=== PATIENT | female | born 1965 | race Caucasian/White ===

== ENCOUNTER → 2018-04-09 | Day surgery (SDC) | payer BC ==
[~2018-04-09] MED LIST: ALLOPURINOL300 MG PO; ALTACE5 MG; CLINDAMYCIN HC150 MG PO; FENTANYL CITRATE/PF 100MCG/2 ML INJ ONE; GLUCAGON FOR INJ 1 MG VIAL ONE; HYDROCHLOROTHIA25 MG; HYOSCYAMINE SULFATE 0.5 MG/ML INJ ONE; LANTUS 3ML100 UNITS/; LIDOCAINE HCL 2% LOCAL INJ 5 ML SDV VIAL INJ ONE; MOBIC15 MG; PHOSPHASAL TAB1 EACH; PROPOFOL IV EMULSION 10 MG/ML 50 ML VIAL ONE; SODIUM BICARBO650 MG PO; TRADJENTA5 MG; VICTOZA 2-0.6 MG/0.1; ZOCOR10 MG
[2018-04-09 09:25] VITALS: BP 109/73
--- NOTE | 2018-04-09 10:48 | Operative Report ---
DATE OF PROCEDURE: April 09, 2018 PROCEDURES PERFORMED: 1. Esophagogastroduodenoscopy with biopsies. 2. Colonoscopy with polypectomy. REFERRING PHYSICIAN: Dr. Harley Haines INDICATIONS FOR EGD: Upper abdominal pain, history of melena. INDICATIONS FOR COLONOSCOPY: Colorectal cancer screening. MEDICATION: Patient was done under MAC. Please see anesthesiologist note. PROCEDURE IN DETAIL: With the patient in left lateral decubitus position, flexible fiberoptic Olympus gastroscope was introduced into the esophagus under direct visualization without any difficulty. There was some patchy erythema noted in distal esophagus. The scope was then advanced with ease into the stomach. The mucosa overlying the antrum revealed some patchy intense erythema and moderate edema, and biopsies were obtained and sent to stain for H. pylori. There was some patchy nodularity noted in the mid body, and biopsies were obtained. Pylorus was of normal contour and shape. It was intubated with ease, and the scope was advanced all the way to the second portion of the duodenum. The scope was then withdrawn slowly. Mucosa overlying the proximal second portion and the duodenal bulb appeared to be within normal limits. The scope was then withdrawn back into the stomach and retroflexed, and the mucosa overlying the fundus was, other than for a minute nodule which was biopsied, appeared to be within normal limits. The cardia was within normal limits. The scope was then straightened out. It was subsequently withdrawn. Patient tolerated the procedure well. IMPRESSION: 1. Distal esophagitis, mild. 2. Gastritis, biopsied. Biopsy sent to stain for Helicobacter pylori. 3. Fundal nodule, minute, biopsied. PLAN: Follow up histology. Initiate Protonix 40 mg 1 p.o. q.a.m. a.c. Patient was then turned around. After adequate lubrication of the anal canal, flexible fiberoptic Olympus colonoscope was inserted into the rectum with ease and advanced all the way to the cecum. An approximately 1.2 cm sessile lesion was noted in the cecum that was removed per snare electrocautery, and polypectomy site was hemoclipped. The scope was then withdrawn slowly and 1 polyp was removed per snare electrocautery from the ascending colon. Some diverticular disease was noted to involve the distal transverse and the left colon. The descending, other than for diverticular disease, grossly appeared to be within normal limits. Four polyps were snared and some were up to 1.2 cm in size, and 4 additional polyps were hot biopsied from the sigmoid colon. Approximately 18 polyps were snared from the rectum. The scope was then retroflexed into the distal rectum and small internal hemorrhoids were noted, none of which was actively bleeding. The scope was then straightened out. It was subsequently withdrawn. Patient tolerated the procedure well. IMPRESSION: 1. Cecal polyp approximately 1.2 cm in size, sessile, removed per snare electrocautery, and polypectomy site hemoclipped. 2. Ascending colon polyp snared. 3. Diverticulosis. 4. Sigmoid colon polyps x8 up to 1.2 cm in size, 4 snared and 4 hot biopsied. 5. Rectal polyps x18 snared. 6. Internal hemorrhoids, none actively bleeding. Plan: Follow up histology. Colonoscopy in 2 months to remove synchronous colorectal neoplasm. ROOAP MATA MD Job#: [id number] cc:HARLEY HAINES DO
== END | disposition home or self-care (01) ==
LOC: OR 06:00
PROVIDERS: ATTEND Internal Medicine Gastroenterology
DX: R10.84 Generalized abdominal pain (principal); K92.1 Melena; R19.7 Diarrhea, unspecified; K59.09 Other constipation; R11.0 Nausea; R14.0 Abdominal distension (gaseous); K21.0 Gastro-esophageal reflux disease with esophagitis; K31.7 Polyp of stomach and duodenum; K29.50 Unspecified chronic gastritis without bleeding; D12.2 Benign neoplasm of ascending colon; D12.0 Benign neoplasm of cecum; K63.5 Polyp of colon; K62.1 Rectal polyp; K57.30 Diverticulosis of large intestine without perforation or abscess without bleeding; K64.8 Other hemorrhoids; I10 Essential (primary) hypertension; E11.9 Type 2 diabetes mellitus without complications; Z79.4 Long term (current) use of insulin; Z79.84 Long term (current) use of oral hypoglycemic drugs; J45.909 Unspecified asthma, uncomplicated; Z01.810 Encounter for preprocedural cardiovascular examination; Z88.1 Allergy status to other antibiotic agents; Z88.0 Allergy status to penicillin
CPT/HCPCS: 43239; 45384; 45385; 93005; J1610; J1980; J2001; 45378

== ENCOUNTER 2018-07-19 16:25 | Emergency (ER) | payer BC ==
[~2018-07-19] VITALS: Ht 172.7 cm; Wt 102.1 kg
[~2018-07-19 16:25] MED LIST changes: -FENTANYL CITRATE/PF 100MCG/2 ML INJ ONE; -GLUCAGON FOR INJ 1 MG VIAL ONE; -HYOSCYAMINE SULFATE 0.5 MG/ML INJ ONE; -LIDOCAINE HCL 2% LOCAL INJ 5 ML SDV VIAL INJ ONE; -PROPOFOL IV EMULSION 10 MG/ML 50 ML VIAL ONE
--- OUTSIDE RECORDS SUMMARY | 2018-07-19 16:28 | XMS REPORT ---
Author [email or web address] Address Unknown Phone Unavailable Care Team Providers Care Financial Reporting Director Name Role Phone Unavailable Unavailable Payers Payer Name Policy Type Policy Number Effective Date Expiration Date Problems This patient has no known problems. Allergies, Adverse Reactions, Alerts Allergy Name Allergy Type Status Severity Reaction(s) Onset Date Inactive Date Treating Clinician Comments Penicillins DA Active U 2018-07-17 00:00:00 nitrofurantoin DA Active U 2018-07-17 00:00:00 Penicillins DA Active U 2018-05-31 00:00:00 nitrofurantoin DA Active U 2018-05-31 00:00:00 Penicillins DA Active U 2015-03-09 00:00:00 nitrofurantoin DA Active U 2015-03-09 00:00:00 Medications This patient has no known medications. Results Test Description Test Time Test Comments Text Results Atomic Results Result Comments - XR CHEST 2 V 2018-07-17 14:29:00 FAX: Coco Pinon [phone] [place]: St: [facility] FAX: Harley Booth [phone] Name: LINWOOD VELASQUEZ [facility] : 1965 Age/S: 53/F Dominique Arciniega [facility] Unit #: [id number] Loc: [place] [address] Phys: Coco Loza MD Acct: [id number] Dis Date: Status: REG ER PHONE #: [phone] Exam Date: 07/17/2018 1430 FAX #: [phone] Reason: cough, sob EXAMS: CPT CODE: [id number] XR CHEST 2 V 57822 REASON FOR EXAM: cough, sob Exam Order Date: 07/17/2018 1:52 PM Ordering M.D.: Coco Loza MD PROCEDURE: - XR CHEST 2 V COMPARISON: FINDINGS: PA and lateral views of the chest show minimal reticular nodular disease in the right apex. No evidence of effusion. The heart size is within normal limits. Pulmonary vasculatures are unremarkable. The osseous structures are grossly intact. IMPRESSION: No active disease. at 1427 Reported and signed by: Jamil Craig M.D. CC: Coco Loza MD; Harley Barnhart Technologist: VITALY MURGUIA(R) Trnscrd Date/Time/By: 07/17/2018 (8058) : By: DeannaVTL Orig Print D/T: S: 07/17/2018 (4414) PAGE 1 Signed Report - CT ABD PELVIS W/CONT 2018-06-21 13:33:00 Name: LINWOOD VELASQUEZ [facility] : 1965 Age/S: 53 / F [address] [facility] Unit #: [id number] Loc: [place] [address] Phys: Maverick Pedersen MD Acct: [id number] Dis Date: Status: REG CLI PHONE #: [phone] Exam Date: 06/21/2018 1155 FAX #: [phone] Reason: PROMINENT SUBMUCOSAL TISSUE EXAMS: CPT CODE: [id number] CT ABD PELVIS W/CONT 51672 HISTORY: Prominent submucosal tissue. COMPARISON: CT scan abdomen and pelvis from February 24, 2014. CT abdomen and pelvis with IV contrast: 100 mL of Isovue-370. Automated exposure control. Oral contrast was administered as well. CT ABDOMEN: The lung bases are clear. The liver is enhancing homogeneously. Gallbladder is without radiopaque stones. Unremarkable spleen. The stomach distended incompletely and is limited in evaluation. Pancreas is enhancing homogeneously. Adrenals are normal. Kidneys are free from hydroureteronephrosis. Calyceal stones in the right interpolar region measuring up to 4 to 5 mm as well in the upper pole. Cortical stone in the medial left interpolar region measuring 1.1 cm. Extrarenal pelvis on the right side. Bilateral excretion is noted. No pathologic adenopathy. Well-opacified abdominal and pelvic vasculature. No bowel obstruction or colitis or diverticulitis or enteritis. Constipation. CT PELVIS: Moderate amount dependent debris within the cecum. Appendix is not visible. Pelvic bowel loops are unobstructed. Extensive sigmoid diverticulosis without diverticulitis. Unremarkable urinary bladder. The uterus is retroverted. Ovaries are not poorly visible but appear unremarkable. Phleboliths. No free fluid or free air or abscess. No pelvic pathologic adenopathy. Subcutaneous tissues and the musculature are normal in appearance. No lytic or blastic lesions are noted within the bony skeleton. IMPRESSION: PAGE 1 Signed Report (CONTINUED) Name: LINWOOD VELASQUEZ [facility] : 1965 Age/S: 53 / F [address] [facility] Unit #: [id number] Loc: [place] [address] Phys: Maverick Pedersen MD Acct: [id number] Dis Date: Status: REG CLI PHONE #: [phone] Exam Date: 06/21/2018 1155 FAX #: [phone] Reason: PROMINENT SUBMUCOSAL TISSUE EXAMS: CPT CODE: [id number] CT ABD PELVIS W/CONT 58498 <Continued> Appendix is not visible but no inflammation. Moderate amount of debris in the dependent portion of the cecum without inflammatory changes. Extensive sigmoid diverticulosis and mild left colonic diverticulosis without diverticulitis. The small bowel loops are normal in appearance. Nonobstructing calyceal stones on the right side without hydroureteronephrosis on either side. Extrarenal pelvis on the right. Unremarkable urinary bladder. No free fluid, free air or abscess. at 1333 Reported and signed by: George Anand M.D. CC: Maverick Pedersen MD; Harley Barnhart Technologist:Jhony Ybarra RT(R),(MR),(CT); CTDI: DLP: Trnscb Date/Time: 06/21/2018 (4838) [email or web address] Orig Print D/T: S: 06/21/2018 (2492) CTDI: DLP: PAGE 2 Signed Report GLUBED 2018-06-08 06:59:00 GLUBED (test code=GLUBED) 104 mg/dL 74-106 Performed by certified keel press operator at [facility] BASIC METABOLIC [id number] 14:29:00* Test Item Value Reference Range Comments SODIUM (test code=NA) 143 mmol/L 136-145 POTASSIUM (test code=K) 3.6 mmol/L 3.5-5.1 CHLORIDE (test code=CL) 110.0 mmol/L 98-107 CARBON DIOXIDE (test code=CO2) 25.0 mmol/L 21-32 ANION GAP (test code=GAP) 11.6 10-20 GLUCOSE (test code=GLU) 219 mg/dL 74-106 BLOOD UREA NITROGEN (test code=BUN) 18 mg/dL 7-18 GLOMERULAR FILTRATION RATE (test code=GFR) > 60 mL/min >=60 Estimated GFR by using Modified MDRD formula.Chronic kidney disease is defined as either kidney damageor GFR <60 mL/min/1.73 m2 for >3 months. CREATININE (test code=CREAT) 0.90 mg/dL 0.55-1.02 Note change in reference range due to change in reagent. BUN/CREATININE RATIO (test code=BUN/CREA) 20.4 10-20 CALCIUM (test code=CA) 9.1 mg/dL 8.5-10.1 BASIC METABOLIC [id number] 14:24:00* Test Item Value Reference Range Comments SODIUM (test code=NA) 143 mmol/L 136-145 POTASSIUM (test code=K) 3.6 mmol/L 3.5-5.1 CHLORIDE (test code=CL) 110.0 mmol/L 98-107 CARBON DIOXIDE (test code=CO2) mmol/L 21-32 ANION GAP (test code=GAP) 10-20 GLUCOSE (test code=GLU) mg/dL 74-106 BLOOD UREA NITROGEN (test code=BUN) mg/dL 7-18 GLOMERULAR FILTRATION RATE (test code=GFR) mL/min >=60 CREATININE (test code=CREAT) mg/dL 0.55-1.02 BUN/CREATININE RATIO (test code=BUN/CREA) 10-20 CALCIUM (test code=CA) 9.1 mg/dL 8.5-10.1 CBC W/AUTO [id number] 13:55:00* Test Item Value Reference Range Comments WHITE BLOOD CELL (test code=WBC) 8.0 K/mm3 4.5-12.5 RED BLOOD CELL (test code=RBC) 4.49 mill/mm3 3.7-5.2 HEMOGLOBIN (test code=HGB) 13.8 gram/dL 11.5-15.5 HEMATOCRIT (test code=HCT) 43.0 % 36.0-46.0 MEAN CELL VOLUME (test code=MCV) 95.8 fL 80-98 MEAN CELL HGB (test code=MCH) 30.7 picogram 27.0-33.0 MEAN CELL HGB CONCETRATION (test code=MCHC) 32.1 gram/dL 33.0-36.0 RED CELL DISTRIBUTION WIDTH (test code=RDW) 13.6 % 11.6-16.2 RED CELL DISTRIBUTION WIDTH SD (test code=RDW-SD) 48.0 fL 37.0-51.0 PLATELET COUNT (test code=PLT) 205 K/mm3 150-450 MEAN PLATELET VOLUME (test code=MPV) 11.8 fL 6.7-11.0 NEUTROPHIL % (test code=NT%) 64.4 % 39.0-69.0 IMMATURE GRANULOCYTE % (test code=IG%) 0.2 % 0.0-5.0 LYMPHOCYTE % (test code=LY%) 27.4 % 25.0-55.0 MONOCYTE % (test code=MO%) 7.1 % 0.0-10.0 EOSINOPHIL % (test code=EO%) 0.7 % 0.0-5.0 BASOPHIL % (test code=BA%) 0.2 % 0.0-1.0 NUCLEATED RBC % (test code=NRBC%) 0.0 % 0-0 NEUTROPHIL # (test code=NT#) 5.16 K/mm3 1.8-7.7 IMMATURE GRANULOCYTE # (test code=IG#) 0.02 x10 3/uL 0-0.03 LYMPHOCYTE # (test code=LY#) 2.20 K/mm3 1.0-5.0 MONOCYTE # (test code=MO#) 0.57 K/mm3 0-0.8 EOSINOPHIL # (test code=EO#) 0.06 K/mm3 0.0-0.5 BASOPHIL # (test code=BA#) 0.02 K/mm3 0.0-0.2 NUCLEATED RBC # (test code=NRBC#) 0.00 K/mm3 0.0-0.1 MANUAL DIFF REQUIRED (test code=MDIFF) NO CBC W/AUTO [id number] 13:52:00* Test Item Value Reference Range Comments WHITE BLOOD CELL (test code=WBC) K/mm3 4.5-12.5 RED BLOOD CELL (test code=RBC) mill/mm3 3.7-5.2 HEMOGLOBIN (test code=HGB) 13.8 gram/dL 11.5-15.5 HEMATOCRIT (test code=HCT) 43.0 % 36.0-46.0 MEAN CELL VOLUME (test code=MCV) fL 80-98 MEAN CELL HGB (test code=MCH) picogram 27.0-33.0 MEAN CELL HGB CONCETRATION (test code=MCHC) gram/dL 33.0-36.0 RED CELL DISTRIBUTION WIDTH (test code=RDW) % 11.6-16.2 RED CELL DISTRIBUTION WIDTH SD (test code=RDW-SD) fL 37.0-51.0 PLATELET COUNT (test code=PLT) K/mm3 150-450 MEAN PLATELET VOLUME (test code=MPV) fL 6.7-11.0 NEUTROPHIL % (test code=NT%) % 39.0-69.0 IMMATURE GRANULOCYTE % (test code=IG%) % 0.0-5.0 LYMPHOCYTE % (test code=LY%) % 25.0-55.0 MONOCYTE % (test code=MO%) % 0.0-10.0 EOSINOPHIL % (test code=EO%) % 0.0-5.0 BASOPHIL % (test code=BA%) % 0.0-1.0 NEUTROPHIL # (test code=NT#) K/mm3 1.8-7.7 LYMPHOCYTE # (test code=LY#) K/mm3 1.0-5.0 MONOCYTE # (test code=MO#) K/mm3 0-0.8 EOSINOPHIL # (test code=EO#) K/mm3 0.0-0.5 BASOPHIL # (test code=BA#) K/mm3 0.0-0.2
[2018-07-19 18:24] LABS: BILIRUBIN,URINE NEGATIVE (NEGATIVE); CLARITY,URINE CLEAR (CLEAR); COLOR,URINE YELLOW (YELLOW); KETONES,URINE NEGATIVE (NEGATIVE); LEUKOCYTE ESTERASE ,URINE NEGATIVE (NEGATIVE); NITRITE,URINE NEGATIVE (NEGATIVE); PROTEIN,URINE DIPSTICK NEGATIVE (NEGATIVE); URINE UROBILINOGEN 0.2 mg/dL (0.2 - 1)
[2018-07-19 18:32] LABS: BACTERIA,URINE MODERATE /HPF; EPITHELIAL CELLS,URINE FEW /LPF
--- NOTE | 2018-07-19 20:45 | Diagnostic Imaging Report ---
EXAMINATION: CHEST 2 VIEWS INDICATION: Shortness of breath, 53-year-old femalei COMPARISON: None FINDINGS: AP view TUBES and LINES: None. LUNGS/PLEURA: The lungs are clear. No pleural effusion or pneumothorax. HEART AND MEDIASTINUM: The cardiomediastinal silhouette is unremarkable. BONES AND SOFT TISSUES: No acute osseous lesion. Soft tissues are unremarkable. UPPER ABDOMEN: No free air under the diaphragm. IMPRESSION: No acute thoracic abnormality. Signed by: Eleno Hampton MD on 07/19/2018 8:42 PM
[2018-07-19 21:11] LABS: BASOPHILS # (AUTO) 0.1 (0.0-0.1); BASOPHILS % 0.3 % (0.0-1.0); EOSINOPHILS # (AUTO) 0.1 (0.0-0.4); EOSINOPHILS % 0.4 % (0.0-6.0); HEMATOCRIT 42.4 % (34.2-44.1); LYMPHOCYTES # (AUTO) 3.5 (1.0-3.2); LYMPHOCYTES % 21.8 % (18.0-39.1); MEAN CORPUSCULAR HEMOGLOBIN 31.3 pg (28-32); MEAN CORPUSCULAR VOLUME 94.6 fL (81-99); MONOCYTES # (AUTO) 1.1 (0.2-0.8); MONOCYTES % 6.5 % (4.4-11.3); NEUTROPHILS # (AUTO) 11.4 (2.1-6.9); NEUTROPHILS % 70.7 % (38.7-80.0); PLATELET COUNT 266 x10e3/uL (140-360); RED BLOOD COUNT 4.48 x10e6/uL (3.6-5.1); RED CELL DISTRIBUTION WIDTH 13.8 % (11.7-14.4)
[2018-07-19 21:21] LABS: INR 0.92; PARTIAL THROMBOPLASTIN TIME 25.6 seconds (23.8-35.5); PROTHROMBIN TIME 12.9 seconds (11.9-14.5)
[2018-07-19 21:35] LABS: ALANINE AMINOTRANSFERASE 15 IU/L (0-55); ALBUMIN 3.9 g/dL (3.5-5.0); ALBUMIN/GLOBULIN RATIO 1.1 (0.8-2.0); ALKALINE PHOSPHATASE 91 IU/L (40-150); ANION GAP 13.6 mmol/L (8-16); BLOOD UREA NITROGEN 15 mg/dL (7-26); BUN/CREATININE RATIO 17 (6-25); CALCIUM 10.2 mg/dL (8.4-10.2); CARBON DIOXIDE 27 mmol/L (22-29); CHLORIDE 102 mmol/L (98-107); CREATINE KINASE 63 IU/L (29-168); CREATININE, SERUM 0.87 mg/dL (0.57-1.11); EST GLOMERULAR FILTRATION RATE > 60 ML/MIN (60-); GLUCOSE 191 mg/dL (74-118); POTASSIUM 3.6 mmol/L (3.5-5.1); SODIUM 139 mmol/L (136-145)
[2018-07-19] MEDS ORDERED: ALBUTEROL/IPRATROPIUM 3 ML NEB NEB ONE (22:15)
[2018-07-19] MEDS ORDERED: METHYLPREDNISOLONE SOD SUCC 125 MG/2ML VIAL IV ONE (22:15)
[2018-07-20] MEDS ORDERED: METHYLPREDNISOLONE SOD SUCC 125 MG/2ML VIAL ONE (01:47)
--- NOTE | 2018-07-20 01:50 | NUR ---
RT CALLED FOR DUONEB PRIOR TO DC TO HOME
[2018-07-20] MEDS ORDERED: ALBUTEROL/IPRATROPIUM 3 ML NEB ONE (01:57)
[2018-07-20 05:03] VITALS: BP 121/65
== END 2018-07-20 02:36 | disposition home or self-care (01) ==
LOC: ER 16:25
DX: R06.00 Dyspnea, unspecified (principal); R05 Cough; J20.9 Acute bronchitis, unspecified; J44.9 Chronic obstructive pulmonary disease, unspecified; E11.65 Type 2 diabetes mellitus with hyperglycemia
CPT/HCPCS: 36415; 71046; 80053; 81001; 82550; 82553; 83880; 84484; 85025; 85379; 85610; 85730; 93005; 94640; 96372; 99283; J2930

== ENCOUNTER 2018-08-24 07:52 | Observation (INO) | payer BC ==
[~2018-08-24] VITALS: Ht 172.7 cm; Wt 90.7 kg
[2018-08-24] MEDS ORDERED: ASPIRIN 81 MG CHEW TAB PO ONE (08:45)
[2018-08-24 09:12] LABS: BASOPHILS # (AUTO) 0.1 (0.0-0.1); BASOPHILS % 0.7 % (0.0-1.0); EOSINOPHILS # (AUTO) 0.1 (0.0-0.4); EOSINOPHILS % 0.9 % (0.0-6.0); HEMOGLOBIN 14.8 g/dL (12.0-16.0); LYMPHOCYTES # (AUTO) 1.9 (1.0-3.2); LYMPHOCYTES % 25.6 % (18.0-39.1); MEAN CORPUSCULAR HEMOGLOBIN 30.8 pg (28-32); MEAN CORPUSCULAR HGB CONC 33.6 g/dL (31-35); MEAN CORPUSCULAR VOLUME 91.5 fL (81-99); MONOCYTES # (AUTO) 0.7 (0.2-0.8); MONOCYTES % 9.5 % (4.4-11.3); NEUTROPHILS # (AUTO) 4.7 (2.1-6.9); PLATELET COUNT 242 x10e3/uL (140-360); RED BLOOD COUNT 4.81 x10e6/uL (3.6-5.1); RED CELL DISTRIBUTION WIDTH 13.1 % (11.7-14.4)
[2018-08-24 09:20] LABS: INR 0.86; PROTHROMBIN TIME 12.2 seconds (11.9-14.5)
[2018-08-24 09:21] LABS: PARTIAL THROMBOPLASTIN TIME 26.8 seconds (23.8-35.5)
--- NOTE | 2018-08-24 09:27 | Diagnostic Imaging Report ---
Examination: CT head without contrast Clinical Indication: Left arm numbness. Weakness. Technique: Transaxial noncontrast images from the skull base through the vertex were obtained. Sagittal and coronal reformatted images were done. Dose modulation, iterative reconstruction, and/or weight based adjustment of the mA/kV was utilized to reduce the radiation dose to as low as reasonably achievable. Comparison: None. Findings: Scalp: No abnormalities. Bones: Intact. No fractures. No blastic or lytic lesions. Brain sulci: Appropriate for patient's age. Ventricles: Normal in size and configuration. No hydrocephalus. Extra-axial space: No abnormalities. Parenchyma: No abnormal densities. No masses, hemorrhage, or acute or chronic cortical based vascular insults. Suprasellar region: No abnormalities. Craniocervical junction: The foramen magnum is patent. No Chiari one malformation. Impression: No intracranial abnormality. Signed by: Dr. Miryam Sosa M.D. on 08/24/2018 9:24 AM
--- NOTE | 2018-08-24 09:33 | Diagnostic Imaging Report ---
Chest, 1 view, 08/24/2018. History: Shortness of breath. Comparison: 07/19/2018. Findings: The cardiomediastinal silhouette and pulmonary vasculature are within normal limits for a portable exam. There is no focal consolidation or pleural effusion. There are no acute osseous or soft tissue abnormalities. Impression: No acute cardiopulmonary abnormality. Signed by: Luis Main on 08/24/2018 9:30 AM
[2018-08-24 10:32] LABS: AMPHETAMINES SCREEN,URINE NEGATIVE (NEGATIVE); BENZODIAZEPINES SCREEN,URINE NEGATIVE (NEGATIVE); CLARITY,URINE CLEAR (CLEAR); COLOR,URINE YELLOW (YELLOW); KETONES,URINE NEGATIVE (NEGATIVE); LEUKOCYTE ESTERASE ,URINE NEGATIVE (NEGATIVE); NITRITE,URINE NEGATIVE (NEGATIVE); PHENCYCLIDINE SCREEN,URINE NEGATIVE (NEGATIVE); PROTEIN,URINE DIPSTICK NEGATIVE (NEGATIVE)
[2018-08-24 10:33] LABS: BILIRUBIN,URINE NEGATIVE (NEGATIVE); URINE UROBILINOGEN 0.2 mg/dL (0.2 - 1)
[2018-08-24 10:46] LABS: BACTERIA,URINE MODERATE /HPF; EPITHELIAL CELLS,URINE MODERATE /LPF; WBC,URINE (MAN) 0-5 /HPF (0-5)
[2018-08-24 10:57] LABS: ALANINE AMINOTRANSFERASE 13 IU/L (0-55); ALBUMIN 3.6 g/dL (3.5-5.0); ALKALINE PHOSPHATASE 94 IU/L (40-150); ANION GAP 11.8 mmol/L (8-16); BLOOD UREA NITROGEN 11 mg/dL (7-26); BUN/CREATININE RATIO 13 (6-25); CALCIUM 9.9 mg/dL (8.4-10.2); CARBON DIOXIDE 24 mmol/L (22-29); CHLORIDE 105 mmol/L (98-107); CREATINE KINASE 82 IU/L (29-168); CREATININE, SERUM 0.85 mg/dL (0.57-1.11); EST GLOMERULAR FILTRATION RATE > 60 ML/MIN (60-); GLUCOSE 180 mg/dL (74-118); POTASSIUM 3.8 mmol/L (3.5-5.1); SODIUM 137 mmol/L (136-145)
[2018-08-24] MEDS ORDERED: DEXTROSE 50% SYRINGE 50 ML IV PRN (11:30)
[2018-08-24] MEDS ORDERED: IPRATROPIUM BROMIDE 0.02% 2.5 ML NEB NEB PRN (11:30)
[2018-08-24] MEDS ORDERED: MORPHINE SULFATE 2 MG/ML SYR 1ML IV PRN (11:30)
[2018-08-24] MEDS ORDERED: ALBUTEROL SULF 0.083% NEB SOLN 3 ML NEB NEB PRN (11:30)
[2018-08-24] MEDS ORDERED: ONDANSETRON HCL INJ 2MG/ML 2ML 2 MG/ML VIAL IV PRN (11:30)
[2018-08-24] MEDS ORDERED: MORPHINE SULFATE INJ 4 MG/ML INJ 1ML IV PRN (11:45)
[2018-08-24] MEDS: FAMOTIDINE 20 MG/2 ML VIAL IV SCH ×2 (12:04→21:36)
[2018-08-24] MEDS: INSULIN LISPRO 100 UNIT/1 ML 3ML VIAL SQ SCH ×3 (12:04→21:00)
[2018-08-24] MEDS ORDERED: HYDRALAZINE HCL 20 MG/ML VIAL IV PRN (16:45)
[2018-08-24] MEDS ORDERED: POLYETHYLENE GLYCOL 3350 17 GM PACK PO PRN (16:45)
[2018-08-24] MEDS: DOCUSATE SODIUM 100 MG CAP PO SCH (17:00)
[2018-08-24 17:30] VITALS: BP 116/66
--- NOTE | 2018-08-24 17:30 | NUR ---
Patient arrived from ER. Currently denies any CP or SOB. Vital signs are stable. Initial assessment done. Patient was instructed to call for assistance as needed
[2018-08-24 17:40] VITALS: BP 116/52
[2018-08-24 18:48] LABS: CREATINE KINASE 70 IU/L (29-168)
[2018-08-24 20:00] VITALS: BP 114/69
[2018-08-24 20:17] VITALS: BP 114/69
[2018-08-24] MEDS: SIMVASTATIN 20 MG TAB PO SCH (21:36)
[2018-08-25] VITALS (7 sets, daily range): BP systolic 98–189; BP diastolic 54–83
--- NOTE | 2018-08-25 00:16 | Consultation ---
DATE OF CONSULTATION: Pulmonary Critical Care Consultation CHIEF COMPLAINT: COPD and chest pain. HISTORY OF PRESENT ILLNESS: The patient is a 53-year-old woman. She has a history of COPD. She uses inhalers at home. She woke up this morning with some chest pain as well as numbness in her arm and hand on the left side. She also reported heaviness in her left leg. The pain gradually subsided over several hours. She has minimal cough. Her dyspnea is at baseline. PAST MEDICAL HISTORY: 1. Diabetes mellitus. 2. COPD. 3. Chronic renal insufficiency. 4. Hypertension. 5. Gout. PAST SURGICAL HISTORY: 1. Status post lithotripsy. 2. Status post partial nephrectomy. 3. History of cholecystectomy. 4. History of tonsillectomy. FAMILY HISTORY: Significant for heart disease as well as diabetes. SOCIAL HISTORY: The patient has been a smoker and recently cut back to 3 cigarettes a day. She is not an active drinker. ALLERGIES: SHE IS ALLERGIC TO MACROBID AND PENICILLIN. REVIEW OF SYSTEMS: She is afebrile. She does not complain of headache or neck pain. She has no chest pain at this time, although she did have chest pain previously. She has dyspnea that is at baseline with exertion. She is not complaining of cough. She has no abdominal pain. She has no leg edema, although she does complain of pain in the left leg. PHYSICAL EXAMINATION: VITAL SIGNS: Stable. HEENT: Shows no facial swelling or erythema. The nasal mucosa is normal. The oropharynx is normal. LYMPHATIC: Shows no submandibular, cervical, or supraclavicular adenopathy. NECK: Shows no JVD or thyromegaly. There is no nuchal rigidity. CARDIAC: Reveals regular rate and rhythm with normal S1 and S2. There are no murmurs or rubs. LUNGS: Auscultation of lungs reveals prolonged expiratory phase. There is no wheezing. ABDOMEN: Soft, nontender. There is no rebound or guarding. EXTREMITIES: Show no leg edema or calf tenderness. There is no cyanosis or clubbing. SKIN: Shows no rashes. NEUROLOGIC: Shows no focal abnormalities. RADIOGRAPHIC DATA: Chest x-ray shows no active disease. LABORATORY DATA: CBC and CMP are within normal limits. IMPRESSION: 1. Chest pain with history of diabetes, hypertension, and a family history of coronary artery disease. 2. Chronic obstructive pulmonary disease. 3. Hypertension. 4. Diabetes. 5. Nephrolithiasis. PLAN: 1. Cardiology evaluation. 2. Continue outpatient inhalers. 3. Oxygen. 4. Venous duplex studies. MD DAVE Floyd/MODL /[id number]
[2018-08-25 04:24] LABS: BASOPHILS % 0.4 % (0.0-1.0); EOSINOPHILS # (AUTO) 0.1 (0.0-0.4); EOSINOPHILS % 1.2 % (0.0-6.0); HEMATOCRIT 40.5 % (34.2-44.1); HEMOGLOBIN 13.6 g/dL (12.0-16.0); LYMPHOCYTES # (AUTO) 2.4 (1.0-3.2); LYMPHOCYTES % 31.1 % (18.0-39.1); MEAN CORPUSCULAR HEMOGLOBIN 31.1 pg (28-32); MEAN CORPUSCULAR HGB CONC 33.6 g/dL (31-35); MEAN CORPUSCULAR VOLUME 92.7 fL (81-99); MONOCYTES # (AUTO) 0.8 (0.2-0.8); MONOCYTES % 9.7 % (4.4-11.3); NEUTROPHILS # (AUTO) 4.5 (2.1-6.9); NEUTROPHILS % 57.5 % (38.7-80.0); PLATELET COUNT 204 x10e3/uL (140-360); RED BLOOD COUNT 4.37 x10e6/uL (3.6-5.1); RED CELL DISTRIBUTION WIDTH 13.1 % (11.7-14.4)
[2018-08-25 04:48] LABS: CREATINE KINASE 64 IU/L (29-168)
[2018-08-25 04:51] LABS: ALANINE AMINOTRANSFERASE 13 IU/L (0-55); ALBUMIN 3.3 g/dL (3.5-5.0); ALKALINE PHOSPHATASE 85 IU/L (40-150); ANION GAP 12.8 mmol/L (8-16); BLOOD UREA NITROGEN 16 mg/dL (7-26); BUN/CREATININE RATIO 20 (6-25); CARBON DIOXIDE 23 mmol/L (22-29); CHLORIDE 108 mmol/L (98-107); CHOL/HDL RATIO 3.7 (3.0-3.6); CHOLESTEROL 157 MD/DL (0-199); CREATININE, SERUM 0.81 mg/dL (0.57-1.11); EST GLOMERULAR FILTRATION RATE > 60 ML/MIN (60-); GLUCOSE 129 mg/dL (74-118); HDL CHOLESTEROL 43 MG/DL (40-60); LDL CHOLESTEROL 88 MG/DL (60-130); POTASSIUM 3.8 mmol/L (3.5-5.1); SODIUM 140 mmol/L (136-145); TRIGLYCERIDES 131 MG/DL (0-149)
[2018-08-25] MEDS ORDERED: ACETAMINOPHEN 325 MG TAB PO PRN (05:00)
[2018-08-25 05:14] LABS: PHOSPHORUS 3.4 MG/DL (2.3-4.7)
[2018-08-25 05:38] LABS: FREE T4 (FREE THYROXINE) 0.94 ng/dL (0.9-1.8); THYROID STIMULATING HORMONE 2.853 uIU/mL (0.350-4.940)
[2018-08-25] MEDS: FAMOTIDINE 20 MG TAB PO SCH ×2 (08:26→16:57)
[2018-08-25] MEDS: ASPIRIN 81 MG ENTERIC COATED PO SCH (09:10)
[2018-08-25] MEDS: RAMIPRIL 5 MG CAP PO SCH (09:10)
[2018-08-25] MEDS: HYDROCHLOROTHIAZIDE 25 MG TAB PO SCH (09:10)
[2018-08-25] MEDS: DOCUSATE SODIUM 100 MG CAP PO SCH ×2 (09:10→16:57)
[2018-08-25] MEDS: SODIUM BICARBONATE 650 MG TAB PO SCH (09:10)
[2018-08-25] MEDS: ALLOPURINOL 300 MG TAB PO SCH (09:10)
[2018-08-25] MEDS: FAMOTIDINE 20 MG/2 ML VIAL IV SCH (09:10)
[2018-08-25] MEDS: INSULIN LISPRO 100 UNIT/1 ML 3ML VIAL SQ SCH ×4 (09:37→21:00)
--- NOTE | 2018-08-25 11:50 | Diagnostic Imaging Report ---
Examination: MRI BRAIN WITHOUT CONTRAST History: Left-sided weakness. Comparison studies: Head CT performed August 24, 2018 Technique: Sagittal T2; axial DWI, FLAIR, GRE or SWI, T1, Coronal FLAIR. Intravenous contrast: None Findings: Scalp: No abnormal signal. No masses. Bone marrow: Normal in signal intensity. Brain volume: Adequate for age. No volume loss. Ventricles: Normal in size and configuration. No hydrocephalus. Extra-axial spaces: No abnormalities. Parenchyma: There are a few (approximately 3) scattered punctate areas of T2/FLAIR hyperintensity in the bilateral periventricular white matter, nonspecific. No masses, hemorrhage, or acute vascular insults. Suprasellar and sellar region: No abnormalities. Craniocervical junction: No abnormalities. The foramen magnum is patent. No Chiari malformations. Vessels: Normal flow-voids in the arteries and sinuses. Additional findings:None. IMPRESSION: No acute intracranial abnormalities. Signed by: Dr. Miryam Sosa M.D. on 08/25/2018 11:46 AM
--- NOTE | 2018-08-25 16:50 | Progress Note ---
DATE: SUBJECTIVE: The patient has no further chest pain. Her breathing is easier. She was evaluated by Cardiology. PHYSICAL EXAMINATION: VITAL SIGNS: The patient is afebrile. The vital signs are stable. HEENT: Shows no facial swelling or erythema. The nasal mucosa is normal. The oropharynx is normal. LYMPHATIC: Shows no submandibular, cervical, or supraclavicular adenopathy. CARDIAC: Reveals regular rate and rhythm with normal S1, S2. There are no murmurs or rubs. LUNGS: Auscultation of lungs reveals clear breath sounds bilaterally. There is no wheezing. ABDOMEN: Soft, nontender. There is no rebound or guarding. EXTREMITIES: Show 1 to 2+ leg edema. IMPRESSION: 1. Chronic obstructive pulmonary disease with acute exacerbation. 2. Chronic systolic congestive heart failure. 3. Atrial fibrillation. 4. Hypertension. 5. Diabetes. PLAN: 1. Continue oxygen and inhalers. 2. Continue nebulizers as needed. 3. Complete Cardiology evaluation. Kofi Landa MD [facility]/MODL /[id number]
[2018-08-25] MEDS ORDERED: ONDANSETRON HCL 4 MG ORAL DISINTEGRATING TAB PO PRN (17:45)
--- NOTE | 2018-08-25 19:00 | NUR ---
received report from day nurse. patient is resting comfortably in bed. bed is in lowest position and call real is within reach. will continue to monitor patient.
--- NOTE | 2018-08-25 19:55 | Consultation ---
DATE OF CONSULTATION: Cardiology consultation. REASON FOR CONSULTATION: Chest pain. HISTORY OF PRESENT ILLNESS: This is a 53-year-old woman with a history of hypertension, diabetes mellitus, hyperlipidemia, chronic obstructive pulmonary disease, and tobacco use, who presented to the emergency department with left leg swelling, left arm swelling with numbness and some atypical chest pain. Her chest pain is mild in severity. No radiation features. No exacerbating or relieving factors. Nonexertional and is currently asymptomatic. REVIEW OF SYSTEMS: A 12-point review of systems was conducted, is negative otherwise as stated above in the HPI. PAST MEDICAL HISTORY: As stated above in the HPI. PAST SURGICAL HISTORY: None recent. PAST FAMILY HISTORY: Multiple family members with heart disease. ALLERGIES: NITROFURANTOIN, PENICILLINS. MEDICATIONS: See medication reconciliation form. PHYSICAL EXAMINATION: VITAL SIGNS: She is afebrile, heart rate is 91, respirations are 14, blood pressure is 112/57, oxygen saturation 99% on room air. GENERAL: Well-appearing, well-built, in no apparent distress. Alert and oriented x3. HEAD: Normocephalic, atraumatic. EYES: Extraocular muscles are intact. Conjunctivae clear. NECK: No JVD. No bruits. CARDIOVASCULAR: Regular rate and rhythm. LUNGS: Clear to auscultation bilaterally. No wheezing. No rales. ABDOMEN: Soft, nontender, nondistended. Normoactive bowel sounds. EXTREMITIES: No clubbing, cyanosis or edema. VASCULAR: 2+ pulses. SKIN: Warm, dry, and intact. NEUROLOGIC: No focal deficits noted. LABORATORY DATA: Reviewed. Troponin negative x3. CK-MB negative x3. Creatinine 0.81. LDL is 88, HDL 43. 12-lead electrocardiogram shows normal sinus rhythm. Chest x-ray shows no acute cardiopulmonary abnormality. IMPRESSION: 1. Precordial pain. 2. Lower extremity swelling with paresthesias. 3. Hypertension. 4. Hyperlipidemia. 5. Diabetes mellitus. RECOMMENDATIONS: The patient ruled out for acute myocardial infarction with 3 sets of negative cardiac enzymes and nonspecific 12-lead electrocardiogram. Her echocardiogram showed preserved left ventricular systolic function with normal valves. Her symptoms have resolved and are atypical in presentation. From a cardiovascular standpoint, we will continue current cardiovascular medications and she can be discharged with outpatient followup for stress testing. DO CAROLYN Alba/NATHANAEL /[id number]
[2018-08-25] MEDS: SIMVASTATIN 20 MG TAB PO SCH (21:05)
--- NOTE | 2018-08-26 02:12 | Consultation ---
DATE OF CONSULTATION: 08/25/2018 Neurology Consult Note HISTORY OF PRESENT ILLNESS: Ms. Gutierres is a 53-year-old left-hand dominant woman with multiple vascular risk factors, admitted to [facility] on August 24, 2018 with chest pain, COPD with acute exacerbation, and symptoms in the left arm concerning to the primary service for stroke. The patient awoke from sleep on the morning of August 23, 2018 with numbness and tingling as well as a heavy sensation over the posterior aspect of her left hand, which radiated proximally to the left elbow. Ms. Gutierres massaged her hand and arm for several minutes. The patient reports the symptoms in her left hand and arm resolved after approximately 2 to 3 hours. The following morning, the patient awoke with the same symptoms. However, the symptoms were more pronounced and persisted for longer period of time. Due to the presence of numbness and tingling in the left hand and arm as well as chest pain, and shortness of breath, the patient presented to the emergency center at [facility] for further evaluation of her symptoms. The patient does not report a visual field cut or other disturbance, dysarthria, aphasia, facial droop, weakness of the left hand or arm, weakness in the left leg, numbness over the left side of the face or in the left leg, poor balance, impairment of gait, or confusion. The patient does report mild dizziness, which is further described as a lightheaded sensation. Upon arrival in the emergency center, the patient was afebrile with a blood pressure of 113/73 mmHg and a pulse of 93 beats per minute. Her neurological examination was documented as being nonfocal. While in the emergency center, a CT of the brain without contrast was performed. There was no evidence of recent large territorial ischemia or hemorrhage on this study. Ms. Gutierres was admitted to [facility] under observation status for further evaluation and treatment of her multiple symptoms. REVIEW OF SYSTEMS: Chest pain, shortness of breath, dyspnea on exertion, dry cough, swelling in both legs (left greater than right) due to varicose veins, numbness and tingling of the left arm, dizziness which is further described as lightheadedness. Otherwise, a 12-point review of systems is negative. PAST MEDICAL HISTORY: Hypertension, hyperlipidemia, diabetes mellitus type 2, chronic obstructive pulmonary disease, and nephrolithiasis. PAST SURGICAL HISTORY: Lithotripsy, tonsillectomy/adenoidectomy, right carpal tunnel release, reconstructive nose surgery x2, urethral dilatation x2, left partial nephrectomy, repositioning of the ureters, nerve ablation in the lumbar spine x2, colonoscopy x2, and esophageal gastroduodenoscopy x1. PAST HOSPITALIZATIONS: Surgeries/procedures as listed, childbirth, bilateral pneumonia in 2015. FAMILY MEDICAL HISTORY: Hypertension, hyperlipidemia, diabetes mellitus, coronary artery disease, stroke, nephrolithiasis, thyroid disease, breast and ovarian cancer in multiple female relatives. SOCIAL HISTORY: Ms. Gutierres is . 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 The patient does report tobacco use, but quit smoking cigarettes two days ago. The patient reports social alcohol use. She does not report current or prior recreational drug use. HOME MEDICATIONS: Reviewed. Please see the list of home medications available in the electronic medical record. HOSPITAL MEDICATIONS: Reviewed. Please see the list of hospital medications available in the electronic medical record. ALLERGIES: PENICILLIN, MACROBID. NO KNOWN FOOD ALLERGIES. NO KNOWN ALLERGIES TO LATEX. NO KNOWN ALLERGIES TO IODINE OR OTHER CONTRAST MATERIALS. PHYSICAL EXAMINATION: VITAL SIGNS: Height 68 inches, weight 200 pounds, BMI 30.4 kg/m2, blood pressure 110/56 mmHg, pulse 85 beats per minute, respiratory rate 21 breaths per minute, and oxygen saturation 98% on room air. GENERAL: The patient is awake and alert, does not appear distressed. Overweight. HEENT: Normocephalic, atraumatic. Pupils are unequal, round, and reactive to light. Moist mucous membranes. NECK: Supple. No appreciable thyromegaly. No appreciable carotid bruits. CARDIOVASCULAR: S1, S2, regular rate and rhythm. No murmurs, rubs, or gallops. RESPIRATORY: Clear to auscultation bilaterally. No wheezes, rhonchi, or rales. EXTREMITIES: The skin is warm and dry. No clubbing, cyanosis, or edema. The posterior tibial and dorsalis pedis pulses are 2+ and symmetric. SKIN: No rashes or lesions. NEUROLOGIC: Memory/Attention: The patient is awake and alert, oriented to person, place, time, and situation. Cranial Nerves: Cranial nerve I - not tested. Cranial nerves II, III, IV, and - pupils are equal and round, react briskly to light (the left pupil is 6 mm to 3 mm and the right pupil is 4 mm to 2 mm). Extraocular movements intact. No nystagmus. Cranial nerve V - sensation to light touch and pinprick is intact in the bilateral V1 through V3 distributions. Strength of the temporalis and masseter muscles are within normal limits. Cranial nerve VII - the face is symmetric as are all facial movements. Strength is within normal limits. Cranial nerve VIII - hearing is intact to finger rub bilaterally. Cranial nerves IX, X - the soft palate elevates equally and symmetrically. Cranial nerve XI - normal strength of the bilateral sternocleidomastoid and trapezius muscles. Cranial nerve XII - the tongue protrudes midline and moves symmetrically from [id number]. Strength: Bulk is normal. Strength is 5/5 in the bilateral deltoids, biceps, triceps, wrist flexors and extensors, finger flexors and extensors, intrinsic hand muscles, hip flexors, knee flexors and extensors, ankle dorsiflexion and plantar flexion, and intrinsic foot muscles. Tone is normal. DTRs: Deep tendon reflexes are 1+ and symmetric at the triceps, biceps, brachioradialis, patellas, and Achilles. Plantar responses are flexor bilaterally. Sensation: Sensation is intact to light touch and pinprick in both arms and both legs. Cerebellar: Kfpere-rqro-ljuhvy and heel-phillips movements are intact without dysmetria or other impairment. Gait: Deferred. Speech: Spontaneous speech is normal without appreciable dysarthria or aphasia. Repetition is intact. Involuntary Movements: None. Pronator Drift: None. LABORATORY DATA: The most recent comprehensive metabolic panel is significant for chloride of 108, glucose of 129, and albumin of 3.3. Cardiac enzymes are negative x3. B-natriuretic peptide less than 10.0. Total cholesterol 157, triglycerides 131, LDL cholesterol 88, HDL cholesterol 43. TSH 2.853, free T4 0.94. Hemoglobin A1c 7.1. The CBC with differential and platelets are unremarkable. The coagulation profile is within normal limits. A urinalysis is significant for specific gravity of 1.005 with moderate urine bacteria and moderate urine epithelial cells. A urine drug screen is negative. A urine culture collected on August 24, 2018, reveals no growth at 18 to 24 hours. DIAGNOSTIC STUDIES: Electrocardiogram on 08/24/2018: Normal sinus rhythm at 88 beats per minute. Chest x-ray on 08/24/2018: No acute cardiopulmonary abnormality. CT of the brain without contrast on 08/24/2018: On my review, there is no evidence of recent or remote large territorial ischemia, hemorrhage, mass, or mass effect. Cerebral volumes are appropriate for age. There are no findings suggestive of chronic small vessel ischemic disease. Echocardiogram on 08/25/2018: Ejection fraction 40%. Trace tricuspid regurgitation. MRI of the brain without contrast on 08/25/2018: On my review, there is no evidence of recent or remote large territorial ischemia, hemorrhage, mass, or mass effect. Cerebral volumes are appropriate for age. There are few scattered T2/FLAIR hyperintense foci in the bilateral periventricular white matter compatible with mild chronic small- vessel ischemic disease. ASSESSMENT AND PLAN: Ms. Gutierres is a 53-year-old left-hand dominant woman with past medical history as detailed, admitted to [facility] on August 24, 2018, with chest pain, chronic obstructive pulmonary disease with acute exacerbation, and numbness and tingling of the left arm. At present, the patient's neurological examination is nonfocal with the exception of unequal pupils as detailed above. The patient's laboratory data and other diagnostic studies have been reviewed and are documented above. There is no evidence of recent or remote large territorial ischemia on the patient's neuro imaging studies. Based on Ms. Gutierres's description of her symptoms, it is probable the patient has an entrapment neuropathy or cervical radiculopathy affecting the left arm and hand. If these symptoms persist over the next 2 to 3 weeks, she should follow up as an outpatient for an NCV EMG of the left arm. There are no other recommendations from the Neurology Service at this time. Thank you for this consultation. Please call again with any questions or concerns. TIME SPENT: 50 minutes. Marsha Tyson MD CP/NATHANAEL /[phone] KENDAL
[2018-08-26 04:00] VITALS: BP 90/52
[2018-08-26 04:05] LABS: BASOPHILS % 0.3 % (0.0-1.0); EOSINOPHILS # (AUTO) 0.1 (0.0-0.4); EOSINOPHILS % 0.9 % (0.0-6.0); HEMOGLOBIN 14.4 g/dL (12.0-16.0); LYMPHOCYTES # (AUTO) 2.5 (1.0-3.2); LYMPHOCYTES % 28.3 % (18.0-39.1); MEAN CORPUSCULAR HEMOGLOBIN 31.2 pg (28-32); MEAN CORPUSCULAR HGB CONC 34.3 g/dL (31-35); MEAN CORPUSCULAR VOLUME 91.1 fL (81-99); MONOCYTES # (AUTO) 0.8 (0.2-0.8); MONOCYTES % 8.8 % (4.4-11.3); NEUTROPHILS # (AUTO) 5.5 (2.1-6.9); NEUTROPHILS % 61.4 % (38.7-80.0); PLATELET COUNT 245 x10e3/uL (140-360); RED BLOOD COUNT 4.61 x10e6/uL (3.6-5.1)
[2018-08-26 04:17] LABS: ANION GAP 11.7 mmol/L (8-16); BLOOD UREA NITROGEN 18 mg/dL (7-26); BUN/CREATININE RATIO 23 (6-25); CALCIUM 10.1 mg/dL (8.4-10.2); CARBON DIOXIDE 24 mmol/L (22-29); CHLORIDE 105 mmol/L (98-107); CREATININE, SERUM 0.77 mg/dL (0.57-1.11); EST GLOMERULAR FILTRATION RATE > 60 ML/MIN (60-); GLUCOSE 159 mg/dL (74-118); MAGNESIUM 1.9 MG/DL (1.3-2.1); POTASSIUM 3.7 mmol/L (3.5-5.1); SODIUM 137 mmol/L (136-145)
--- NOTE | 2018-08-26 06:45 | NUR ---
report given to day nurse. patient is resting in bed. bed is in lowest position and call real is within reach.
[2018-08-26 07:37] VITALS: BP 119/64
[2018-08-26] MEDS: INSULIN LISPRO 100 UNIT/1 ML 3ML VIAL SQ SCH ×3 (07:50→16:46)
[2018-08-26 08:15] VITALS: BP 119/64
[2018-08-26] MEDS: ALLOPURINOL 300 MG TAB PO SCH (08:17)
[2018-08-26] MEDS: DOCUSATE SODIUM 100 MG CAP PO SCH ×2 (08:17→16:44)
[2018-08-26] MEDS: RAMIPRIL 5 MG CAP PO SCH (08:17)
[2018-08-26] MEDS: HYDROCHLOROTHIAZIDE 25 MG TAB PO SCH (08:17)
[2018-08-26] MEDS: FAMOTIDINE 20 MG TAB PO SCH ×2 (08:17→16:44)
[2018-08-26] MEDS: SODIUM BICARBONATE 650 MG TAB PO SCH (08:17)
[2018-08-26] MEDS: ASPIRIN 81 MG ENTERIC COATED PO SCH (08:17)
[2018-08-26] MEDS ORDERED: ASPIRIN EC81 MG PO (09:14)
[2018-08-26] MEDS ORDERED: SIMVASTATIN20 MG PO (09:14)
[2018-08-26] MEDS ORDERED: ALTACE5 MG PO (09:14)
[2018-08-26] MEDS ORDERED: PANTOPRAZOLE SO40 MG PO (09:24)
[2018-08-26 11:35] VITALS: BP 99/51
--- NOTE | 2018-08-26 15:21 | Diagnostic Imaging Report ---
EXAM: Right upper quadrant abdominal ultrasound INDICATION: Abdominal pain, nausea. COMPARISON: None. TECHNIQUE: Transverse and longitudinal images of the right upper quadrant abdomen were obtained FINDINGS: Liver: Size: 14.0 cm in the right midclavicular line, normal Appearance: Normal echogenicity, smooth contour Mass: No focal masses Gallbladder: No distention, pericholecystic fluid, wall thickening, stone, or reported sonographic Spann's sign. Gallbladder wall measures 0.3 cm. Bile Ducts: Intrahepatic Ducts: No dilatation Extrahepatic Ducts: Common bile duct measures 0.5cm, no dilatation Pancreas: Visualized portions of the pancreatic head, neck and proximal body are normal. Kidney: The right kidney measures 9.1 cm without evidence of hydronephrosis or stone. Vessels: Aorta: Visualized portions are normal Inferior Vena Cava: Visualized portions are normal Main Portal Vein: 0.8 cm, normal size with hepatopetal flow. Free Fluid: No ascites or pleural effusion IMPRESSION: Unremarkable right upper quadrant abdominal ultrasound. Signed by: Dr. Kiel Rueda MD on 08/26/2018 3:18 PM
[2018-08-26 15:26] VITALS: BP 118/56
--- NOTE | 2018-08-26 18:51 | NUR ---
US result read back to Marivel PHERESIS SPECIALIST, order given patient can go home. IV canula removed with tip intact, no ss of infiltration . precription given, denies any pain, not in any distress
--- NOTE | 2018-08-27 02:13 | Discharge Summary ---
ADMISSION DIAGNOSES: Precordial chest pain, chronic obstructive pulmonary disease without exacerbation, left leg and arm pain and heaviness, hypertension complicated by chronic kidney disease, type 2 diabetes complicated by chronic kidney disease, chronic kidney stones, chronic kidney disease, hyperlipidemia. DISCHARGE DIAGNOSES: Precordial chest pain, chronic obstructive pulmonary disease without exacerbation, left leg and arm pain and heaviness, hypertension complicated by chronic kidney disease, type 2 diabetes complicated by chronic kidney disease, chronic kidney stones, chronic kidney disease, hyperlipidemia. Rule out acute coronary syndrome, rule out cerebrovascular accident/transient ischemic attack. HISTORY: The patient has a history of hypertension, type 2 diabetes, COPD, kidney stones, CKD, hyperlipidemia, UTI, gout, and GERD. SURGICAL HISTORY: Lithotripsy, partial nephrectomy on the left, tonsillectomy, and tubal ligation. FAMILY HISTORY: The patient's mom and dad both had diabetes. The patient's mom had heart failure. SOCIAL HISTORY: The patient admits to drinking socially and smoking half pack a day for 37 years. HOSPITAL COURSE: The patient was admitted to [facility] about a month ago with COPD exacerbation. She was discharged home and was following Dr. Landa outpatient. Over the last few days, she has had increasing dyspnea on exertion. She reports swelling on her left leg, increased fatigue, and sleeping often. She also complains of left arm and hand swelling. Then on the morning of admission, she had chest pain that radiated down her left arm. On admission, left lower extremity venous Doppler was negative. Chest x-ray was negative. CT of the brain was negative. MRI of the brain was negative. Urine drug screen negative. Echo showed an EF of 40%. Cardiology saw the patient and cleared for discharge as troponin was negative. The patient complained of swelling to the left arm, which was not visualized by the physician. Then on the day of discharge, patient began to complain of abdominal pain. Ultrasound of the abdomen was done, which was also negative. The lipase was within normal limits. The patient was given a prescription for aspirin, simvastatin, ramipril. Ramipril and simvastatin she takes at home already, but she did not have a dose and she was given a new prescription for Protonix. The patient is tolerating her diet and feeling much better per RN report. Vital signs stable, patient afebrile. She will follow up with primary care in 1-2 weeks; Dr. Tyson, neurologist, for possible of the left upper extremity weakness and pain and Cardiology as discussed. The patient understands discharge instructions and agrees to plan. Dictated by Marivel Rowe NP MD JUANM ANUEL Don/NATHANAEL /[id number]
== END 2018-08-26 18:49 | disposition home or self-care (01) ==
LOC: ER 07:52 → ERHOLD 11:29 → IMCU 17:31
PROVIDERS: ADMIT Internal Medicine; ATTEND Internal Medicine
DX: J44.1 Chronic obstructive pulmonary disease with (acute) exacerbation (principal); M79.605 Pain in left leg; I83.12 Varicose veins of left lower extremity with inflammation; I83.11 Varicose veins of right lower extremity with inflammation; Z72.0 Tobacco use; N20.0 Calculus of kidney; E11.22 Type 2 diabetes mellitus with diabetic chronic kidney disease; N18.9 Chronic kidney disease, unspecified; I13.0 Hypertensive heart and chronic kidney disease with heart failure and stage 1 through stage 4 chronic kidney disease, or unspecified chronic kidney disease; I50.22 Chronic systolic (congestive) heart failure; M10.9 Gout, unspecified
CPT/HCPCS: 36415 ×3; 70450; 70551; 71045; 76705; 80048; 80053 ×2; 80061; 80307; 81001; 82550 ×2; 82553 ×2; 82948 ×3; 83036; 83690; 83735 ×3; 83880 ×2; 84100; 84439; 84443; 84484 ×2; 85025 ×3; 85379; 85610; 85730; 87086; 93005; 93306; 93971; 94640; 96372; 97161; 99284; G0378 ×3; Q0162

== ENCOUNTER → 2020-03-19 | Day surgery (SDC) | payer BC ==
[2020-03-15 16:31] LABS: BASOPHILS % 0.5 % (0.0-1.0); EOSINOPHILS # (AUTO) 0.1 (0.0-0.4); EOSINOPHILS % 0.8 % (0.0-6.0); HEMATOCRIT 45.3 % (34.2-44.1); HEMOGLOBIN 14.7 g/dL (12.0-16.0); LYMPHOCYTES # (AUTO) 2.6 (1.0-3.2); LYMPHOCYTES % 31.4 % (18.0-39.1); MEAN CORPUSCULAR HEMOGLOBIN 30.9 pg (28-32); MEAN CORPUSCULAR HGB CONC 32.5 g/dL (31-35); MEAN CORPUSCULAR VOLUME 95.2 fL (81-99); MONOCYTES # (AUTO) 0.8 (0.2-0.8); MONOCYTES % 9.4 % (4.4-11.3); NEUTROPHILS # (AUTO) 4.8 (2.1-6.9); NEUTROPHILS % 57.5 % (38.7-80.0); PLATELET COUNT 164 x10e3/uL (140-360); RED BLOOD COUNT 4.76 x10e6/uL (3.6-5.1)
[2020-03-15 16:40] LABS: INR 0.94; PROTHROMBIN TIME 13.1 seconds (11.9-14.5)
[2020-03-15 16:47] LABS: ANION GAP 13.7 mmol/L (8-16); CALCIUM 9.8 mg/dL (8.4-10.2); CREATININE, SERUM 1.01 mg/dL (0.57-1.11); POTASSIUM 3.7 mmol/L (3.5-5.1)
[~2020-03-19] MED LIST changes: +ADVAIR 100-501 EACH INH; +ALTACE5 MG PO; +ASPIRIN EC81 MG PO; +BONIVA150 MG PO; +FENTANYL CITRATE/PF 100MCG/2 ML INJ ONE; +HYOSCYAMINE 0.125 MG TAB ONE; +JANUVIA100 MG PO; -LANTUS 3ML100 UNITS/; +LANTUS 3ML100 UNITS/ SQ; +LEVSIN0.125 MG PO; +METHENAMINE HIPP1 GM PO; +MIDAZOLAM HCL 2 MG/2 ML VIAL ONE; -MOBIC15 MG; +MOBIC15 MG PO; +OMEPRAZOLE40 MG PO; +PANTOPRAZOLE SO40 MG PO; +PROPOFOL IV EMULSION 10 MG/ML 20 ML VIAL ONE; +SIMVASTATIN20 MG PO; +SINGULAIR10 MG PO; +TRULICITY1.5 MG/0.5 SC
[2020-03-19 13:40] VITALS: BP 116/73
== END | disposition home or self-care (01) ==
LOC: OR 10:28
PROVIDERS: ATTEND Internal Medicine Gastroenterology
DX: D12.3 Benign neoplasm of transverse colon (principal); K63.5 Polyp of colon; K57.30 Diverticulosis of large intestine without perforation or abscess without bleeding; K62.1 Rectal polyp; K64.8 Other hemorrhoids; K59.00 Constipation, unspecified; I10 Essential (primary) hypertension; E11.9 Type 2 diabetes mellitus without complications; Z88.0 Allergy status to penicillin; Z88.8 Allergy status to other drugs, medicaments and biological substances; Z83.71 Family history of colonic polyps; Z86.010 Personal history of colon polyps; Z68.32 Body mass index [BMI] 32.0-32.9, adult; A04.8 Other specified bacterial intestinal infections; K21.9 Gastro-esophageal reflux disease without esophagitis; J44.9 Chronic obstructive pulmonary disease, unspecified; Z01.810 Encounter for preprocedural cardiovascular examination; Z01.812 Encounter for preprocedural laboratory examination; Z20.828 Contact with and (suspected) exposure to other viral communicable diseases
CPT/HCPCS: 36415 ×2; 45380; 45384; 45385; 80048; 82948; 85025; 85610; 85730; 93005; J2250; J2704; J3010; U0002; 45378

== ENCOUNTER 2020-07-20 08:22 | Emergency (ER) | payer BC ==
[~2020-07-20] VITALS: Ht 172.7 cm; Wt 94.8 kg
[~2020-07-20 08:22] MED LIST changes: -FENTANYL CITRATE/PF 100MCG/2 ML INJ ONE; -HYOSCYAMINE 0.125 MG TAB ONE; -MIDAZOLAM HCL 2 MG/2 ML VIAL ONE; -PROPOFOL IV EMULSION 10 MG/ML 20 ML VIAL ONE
[2020-07-20] MEDS ORDERED: ASPIRIN 81 MG CHEW TAB PO ONE (08:30)
[2020-07-20] MEDS ORDERED: ONDANSETRON HCL INJ 2MG/ML 2ML 2 MG/ML VIAL IV STA (08:35)
[2020-07-20] MEDS ORDERED: MORPHINE SULFATE INJ 4 MG/ML INJ 1ML IV STA (08:35)
[2020-07-20] MEDS ORDERED: ONDANSETRON HCL 4 MG ORAL DISINTEGRATING TAB PO ONE (08:45)
[2020-07-20 08:49] LABS: BASOPHILS # (AUTO) 0.1 (0.0-0.1); BASOPHILS % 0.5 % (0.0-1.0); EOSINOPHILS # (AUTO) 0.1 (0.0-0.4); HEMATOCRIT 47.2 % (34.2-44.1); LYMPHOCYTES # (AUTO) 2.6 (1.0-3.2); LYMPHOCYTES % 25.3 % (18.0-39.1); MEAN CORPUSCULAR HEMOGLOBIN 31.1 pg (28-32); MEAN CORPUSCULAR HGB CONC 33.9 g/dL (31-35); MEAN CORPUSCULAR VOLUME 91.8 fL (81-99); MONOCYTES # (AUTO) 0.8 (0.2-0.8); MONOCYTES % 8.3 % (4.4-11.3); NEUTROPHILS # (AUTO) 6.6 (2.1-6.9); NEUTROPHILS % 64.7 % (38.7-80.0); PLATELET COUNT 129 x10e3/uL (140-360); RED BLOOD COUNT 5.14 x10e6/uL (3.6-5.1); RED CELL DISTRIBUTION WIDTH 13.2 % (11.7-14.4)
[2020-07-20 09:07] LABS: ALANINE AMINOTRANSFERASE 20 IU/L (0-55); ALBUMIN 4.1 g/dL (3.5-5.0); ALKALINE PHOSPHATASE 74 IU/L (40-150); ANION GAP 17.4 mmol/L (8-16); BLOOD UREA NITROGEN 17 mg/dL (7-26); BUN/CREATININE RATIO 17 (6-25); CALCIUM 9.7 mg/dL (8.4-10.2); CARBON DIOXIDE 23 mmol/L (22-29); CHLORIDE 100 mmol/L (98-107); CREATINE KINASE 238 IU/L (29-168); CREATININE, SERUM 0.98 mg/dL (0.57-1.11); EST GLOMERULAR FILTRATION RATE 59 ML/MIN (60-); GLUCOSE 314 mg/dL (74-118); POTASSIUM 4.4 mmol/L (3.5-5.1); SODIUM 136 mmol/L (136-145)
[2020-07-20 09:09] LABS: LYMPHOCYTES % (MANUAL) 5 % (19-48); MONOCYTES % (MANUAL) 3 % (3.4-9.0); NEUTROPHILS % (MANUAL) 92 % (40-74)
[2020-07-20] MEDS ORDERED: TYLENOL # 31 EA PO (10:12)
[2020-07-20] MEDS ORDERED: HYDROCODONE/APAP 5MG-325MG TAB PO ONE (10:15)
== END 2020-07-20 10:31 | disposition home or self-care (01) ==
LOC: ER 08:26
DX: R07.89 Other chest pain (principal); R25.2 Cramp and spasm; E11.65 Type 2 diabetes mellitus with hyperglycemia; N18.9 Chronic kidney disease, unspecified; J44.9 Chronic obstructive pulmonary disease, unspecified; E78.5 Hyperlipidemia, unspecified; K21.9 Gastro-esophageal reflux disease without esophagitis; R94.31 Abnormal electrocardiogram [ECG] [EKG]; F17.210 Nicotine dependence, cigarettes, uncomplicated
CPT/HCPCS: 36415; 71045; 80053; 82550; 82553; 83880; 84484; 85025; 93005; 93926; 93971; 99283; J2270; Q0162

== ENCOUNTER 2021-05-07 11:01 | Emergency (ER) | payer BC ==
[~2021-05-07] VITALS: Ht 172.7 cm; Wt 87.7 kg
[~2021-05-07 11:01] MED LIST changes: +TYLENOL # 31 EA PO
[2021-05-07] MEDS ORDERED: PROTONIX20 MG PO (11:36)
[2021-05-07] MEDS ORDERED: MOBIC15 MG PO (11:36)
[2021-05-07] MEDS ORDERED: ZOCOR10 MG PO (11:36)
[2021-05-07] MEDS ORDERED: AZITHROMYCIN250 MG PO (12:11)
[2021-05-07] MEDS ORDERED: VENTOLIN HFA18 GM INH (12:12)
== END 2021-05-07 12:40 | disposition home or self-care (01) ==
LOC: FSED 11:28
DX: R05.9 Cough, unspecified (principal); J20.9 Acute bronchitis, unspecified; B34.9 Viral infection, unspecified; J44.9 Chronic obstructive pulmonary disease, unspecified; E11.9 Type 2 diabetes mellitus without complications; I10 Essential (primary) hypertension; J45.909 Unspecified asthma, uncomplicated; E78.5 Hyperlipidemia, unspecified; K21.9 Gastro-esophageal reflux disease without esophagitis; E78.00 Pure hypercholesterolemia, unspecified
CPT/HCPCS: 87400; 99283